=== PATIENT | male | born 1940 | race Caucasian/White ===

== ENCOUNTER 2017-03-21 16:50 | Emergency (ER) | payer MEDICARE, MEDICAID ==
[~2017-03-21] VITALS: Ht 177.8 cm; Wt 81.6 kg
[2017-03-21 16:56] VITALS: BP 138/85
== END 2017-03-22 04:31 | disposition home or self-care (01) ==
LOC: ER 16:50 → EDBD 16:50 → ER 22:28
DX: L03.114 Cellulitis of left upper limb (principal); R60.0 Localized edema; F17.210 Nicotine dependence, cigarettes, uncomplicated; Z59.0 Homelessness